=== PATIENT | female | born 1940 | race Caucasian/White ===

== ENCOUNTER 2017-03-16 07:29 | Day surgery (SDC) | payer MEDICARE ==
--- NOTE | 2017-03-08 11:47 | NUR ---
NN DURING PREOP PHONE CALL PT REPORTED HAVING CP WITHIN THE LAST WEEK, STATED IT RESOLVED WITH NITRO. PT ALSO STATED SHE HAD AN APPT WITH HER SHACKLER YESTERDAY BUT THAT SHE HAD FORGOTTEN TO GO TO THAT APPT. Savanna SEGURA WITH ANESTHESIA WAS NOTIFIED AND REQUESTED CARDIAC CLEARANCE BE OBTAINED BEFORE PROCEEDING WITH PROCEDURE. DUNCAN WITH DR. LEWIS'S OFFICE WAS NOTIFIED.
--- NOTE | 2017-03-15 17:15 | NUR ---
NN PT'S HAD BEEN CANCELLED LAST WEEK BECAUSE OF AN EPISODE OF CHEST PAIN, AT THAT TIME CARDIAC CLEARANCE WAS REQUESTED BY NINFA FROM ANESTHESIA DEPT. THE CHART TODAY OBTAINED A TYPED NOTE FROM DUNCAN AT DR. LEWIS'S OFFICE STATING THE PT WAS CLEARED FROM B2B APPOINTMENT SETTER FOR SURGERY. THERE WAS NOT AN ACTUAL NOTE FROM THE B2B APPOINTMENT SETTER STATING PT WAS CLEARED. VOICE MAIL WAS LEFT AT DR. HERNANDEZ OFFICE ON [facility] VOICE MAIL STATING WE WOULD NEED A LETTER FROM THE B2B APPOINTMENT SETTER STATING PT WAS CLEARED. [facility]-ANESTHESIA ELECTRICAL MAINTENANCE TECHNICIAN WAS NOTIFIED OF SITUATION WELL.
[~2017-03-16] VITALS: Ht 156.2 cm; Wt 72.4 kg
[~2017-03-16 07:29] MED LIST: ARFO15VI3 AEROSOL; BUDE0.2510 AEROSOL; FERR-67 PO; GUAI-782 PO; LEVO137T23 PO; LISI1TAB13 PO; MELO15TA12 PO; METF10002 PO; OMEP10CA4 PO; PRAV20TA4 PO
--- OUTSIDE RECORDS SUMMARY | 2017-03-16 07:35 | XMS REPORT ---
Author Author Carmella Laboy Organization [employer] Address Unknown Phone Unavailable Care Team Providers Care Textile Machine Operator Name Role Phone Carmella Laboy CP Unavailable Allergies No Known Allergies Problems Problem Type Condition Code Onset Dates Condition Status Problem Hypothyroidism, unspecified E03.9 Active Problem Essential (primary) hypertension I10 Active Problem Vitamin B12 deficiency anemia due to intrinsic factor deficiency D51.0 Active Problem Type 2 diabetes mellitus with hyperglycemia E11.65 Active Problem Chronic obstructive pulmonary disease, unspecified J44.9 Active Medications Medication Code System Code Instructions Start Date End Date Status Dosage Metformin HCl [facility] [id number] 1000MG Orally Twice a day 1 tablet with meals Results No Known Results Summary Purpose eClinicalWorks Submission
--- OUTSIDE RECORDS SUMMARY | 2017-03-16 07:35 | XMS REPORT | Continuity of Care Document ---
Author Author [facility] Organization [facility] Address Unknown Phone Unavailable Support Name Relationship Address Phone KAREN GALEANA MD Caregiver [address] [place] [address] [place] [address] Unavailable PATRICIA CARSON APRN Caregiver [address] [place] [address] Unavailable [employer] Next Of Kin Unknown [phone] Insurance Providers Guarantor Michelle Michel Address [address] [place] [address] CP Email DENIED PT PORTAL Payer Medicare Policy Number [id number] Subscriber's Name Michelle Michel Relationship 18 Self Advance Directives Directive Response Recorded Date/Time Advanced Directives Type None 05/13/14 1:22pm Ordered Resuscitation Status Full Code 04/21/16 12:17pm Resuscitation Documents on File No 04/22/16 6:21am DPOA for Healthcare Only No 04/22/16 6:21am Problems No problem information available. Medications Current Home Medications Medication Dose Units Route Directions Days Qty Instructions Start Date Arformoterol Tartrate (Brovana) 15 Mcg/2 Ml Vial.neb 1 Vial Aerosol Tx. Twice A Day 03/24/16 Budesonide 0.25 Mg/2 Ml Ampul.neb 1 Vial Aerosol Tx. Twice A Day 03/24/16 Cholecalciferol (Vitamin D3) (Vitamin D3) 5,000 Unit Tablet 1 Tab Oral Daily 03/24/16 Cinnamon Bark (Cinnamon) 500 Mg Capsule 1 Cap Oral Daily 03/24/16 Ferrous Sulfate (Iron Supplement) 325 Mg Tablet 1 Tab Oral Twice A Day 03/24/16 Garlic 1 Each Capsule 1 Cap Oral Daily 03/24/16 Guaifenesin/Dextromethorphan (Mucinex Dm Er 600-30 Mg Tablet) 1 Each Tab.er.12h 1 Tab Oral Twice A Day 03/24/16 Hydrocodone/Acetaminophen (Avenue 5-325 Tablet) 5-325 Tablet 1-2 Tab Oral Every 4-6 Hours as needed for Pain 30 Tablet 04/22/16 Levothyroxine Sodium (Synthroid) 100 Mcg Tablet 1 Tab Oral Before Breakfast BEST IF TAKEN BEFORE BREAKFAST 03/24/16 Lisinopril/Hydrochlorothiazide (Lisinopril-Hctz 20-25 Mg Tab) 1 Each Tablet 0.5 Tab Oral Daily 03/24/16 Meloxicam (Mobic) 15 Mg Tablet 1 Tab Oral Bedtime 03/24/16 Metformin Hcl 1,000 Mg Tablet 1 Tab Oral Twice Daily With Meals Take one tablet, by mouth, twice daily with meals 03/24/16 Multivitamin (Multi-Day Vitamins) 1 Each Tablet 1 Tab Oral Daily 03/24/16 Omeprazole 10 Mg Capsule 10 Mg Oral Daily 03/24/16 Potassium Gluconate 2.5 Meq Tablet 1 Tab Oral Give With Breakfast 03/24/16 Pravastatin Sodium 20 Mg Tablet 20 Mg Oral Bedtime Take 1 tablet, by mouth, daily at bedtime. 03/24/16 Pyridoxine Hcl (Vitamin B-6) 25 Mg Tablet 1 Tab Oral Three Times A Day 03/24/16 Vitamin B12 Injection Wkly 03/24/16 Social History Social History Problem Response Recorded Date/Time Onset Date Status Chewing Tobacco Status No 05/13/2014 1:22pm Not Applicable Not Applicable Hx Substance Use No 04/22/2016 6:33am Not Applicable Not Applicable Hx Alcohol Use Y MODERATE 2 DRINKS A DAY 04/22/2016 6:33am Not Applicable Not Applicable Has the pt used tobacco in the last 12 months Yes 04/22/2016 6:33am Not Applicable Not Applicable Query Response Start Date Stop Date Smoking Status Current every day smoker Hospital Discharge Instructions Instructions: Care Instructions: Reason for Hospitalization: VENTRAL NERNIA I was in the hospital because (patient own words): FIX MY HERNIA Discharge Diet: Resume your normal diet as tolerated. Discharge Activity: Resume your normal activity as tolerated EXCEPT no heavy pushing, pulling, straining, or lifting >15 pounds for 3 weeks. Wear your abdominal binder as much as possible for the first 3 weeks to help prevent hernia recurrence and decrease pain (may remove to shower). Follow Up Appointments: Follow up with Dr. Galeana in 10-14 days. - Patient to call [phone] to schedule appointment. Pending Lab / Results: No Pending Lab Patient Instructions: For management of your postoperative pain consider the following: - You may take your Mobic (meloxicam) to help with pain in addition to pain pills or Tylenol. - You may take regular strength Tylenol (325 mg) INSTEAD of any Avenue dose. (No more than 10 tablets including Avenue and regular strength Tylenol in a 24 hour period). - Do not drive, operate machinery, drink alcohol, or sign important papers for 24 hours or while taking pain medication. Wound/Incision Care: Your incision has been covered with sterile glue. - No dressing is required. - You may shower after 24 hours - No tub baths or swimming for 2 weeks. Notify Physician If: Contact Dr. Galeana if any of the following occur: - Your pain is not adequately controlled. - You have persistent nausea or vomiting for more than 24 hours. - You have a fever over 101.5 degrees. - You develop redness, swelling, increasing pain, excessive bleeding, or excessive/foul smelling drainage at your incision site. - You have difficulty breathing. During office hours, call [phone]. After hours, please call [facility] at [phone] and have the wire brush operator page Dr. Galeana or the covering surgeon. *In the event of an emergency, seek medical care at the nearest emergency room.* Condition at time of discharge: Good Plan of Care Discharge Date 04/22/16 4:15pm Instructions/Education Provided DI for Hernia Repair DI for Hiatal Hernia Prescriptions See Medication Section Functional Status Query Response Date Recorded Mobility Status Ambulatory w/assist April 22, 2016 10:30am Activity Limitations None April 22, 2016 10:30am Feeding Ability Independent April 22, 2016 10:30am Toileting Ability Assist April 22, 2016 10:30am Grooming Ability Independent April 22, 2016 10:30am Dressing Ability Assist April 22, 2016 10:30am Driving Ability Dependent April 22, 2016 10:30am Housework Ability Assist April 22, 2016 10:30am Meal Preparation Ability Assist April 22, 2016 10:30am Stair Climbing Ability Assist April 22, 2016 10:30am Ability to complete ADL's impeded by No change April 22, 2016 10:30am Cognitive/Perceptual Impairments Impaired vision April 22, 2016 10:30am Visual Assistive Devices Glasses April 22, 2016 10:30am Allergies, Adverse Reactions, Alerts Allergen Type Severity Reaction Status Last Updated NKDA Allergy Unknown Active 04/22/16 RED SNAPPER Allergy Unknown HIVES Active 05/15/14 SHRIMP Allergy Unknown FACIAL SWELLING Active 05/15/14 Immunizations Query Response on File Recorded Date/Time Hx Influenza Vaccination Y fall 201304/22/16 6:33am Hx Pneumococcal Vaccination Y AFTER AGE 65 04/22/16 6:33am Hx Influenza Vaccination Y fall 201304/22/16 6:33am Vital Signs Acute Vital Signs Vital Response Date/Time Temperature (Fahrenheit) 98.0 deg F (96.8 - 99.1) 04/22/2016 4:05pm Temperature (Calculated Celsius) 36.59454 degrees C (36.0 - 37.3) 04/22/2016 4:05pm Temperature Source Oral 04/22/2016 4:05pm Pulse Rate (adult) 84 bpm (60 - 100) 04/22/2016 4:05pm Respiratory Rate 24 breaths/min (10 - 20) 04/22/2016 4:05pm O2 Sat by Pulse Oximetry 95 % (90 - 100) 04/22/2016 4:05pm Oxygen Delivery Method Room Air 04/22/2016 4:05pm Oxygen Delivery Method Nasal Cannula 04/22/2016 11:29am Oxygen Flow Rate 3.00 L/min 04/22/2016 2:33pm Blood Pressure 157/74 mm Hg 04/22/2016 4:05pm Blood Pressure Source Automatic Cuff 04/22/2016 4:05pm Height (Feet) 5 feet 04/22/2016 6:11am Height (Inches) 1.00 inches 04/22/2016 6:11am Weight (Kilograms) 72.700 kg 04/22/2016 6:11am Body Mass Index (BMI) 30.3 04/22/2016 6:11am Results Laboratory Results Test Name Result Units Flags Reference Collection Date/Time Result Date/ Time Comments White Blood Count 8.6 T/MM3 4.5-11.0 04/22/2016 6:05am 04/22/2016 6: 14am Red Blood Count 4.28 M/MM3 4.00-5.20 04/22/2016 6:05am 04/22/2016 6: 14am Hemoglobin 10.8 GM/DL L 12-16 04/22/2016 6:0504/22/2016 6:14am Hematocrit 35.0 % L 36-46 04/22/2016 6:0504/22/2016 6:14am Mean Corpuscular Volume 81.8 UM3 80-100 04/22/2016 6:0504/22/2016 6: 14am Mean Corpuscular Hemoglobin 25.2 UUG L 26-34 04/22/2016 6:052015 6:14am Mean Corpuscular Hemoglobin Concent 30.9 GM/DL L 31-37 04/22/2016 6:0504/22/2016 6:14am RDW Standard Deviation 47.8 FL 36.9-50.2 04/22/2016 6:0504/22/2016 6 :14am Platelet Count 316 T/MM3 130-400 04/22/2016 6:0504/22/2016 6:14am Mean Platelet Volume 10.1 UM3 9.4-12.4 04/22/2016 6:0504/22/2016 6: 14am Neutrophils (%) (Auto) 60.6 % 33-66 04/22/2016 6:0504/22/2016 6: 14am Lymphocytes (%) (Auto) 29.4 % 23-45 04/22/2016 6:0504/22/2016 6: 14am Monocytes (%) (Auto) 6.3 % 0-9.0 04/22/2016 6:0504/22/2016 6:14am Eosinophils (%) (Auto) 2.7 % 0-4 04/22/2016 6:0504/22/2016 6:14am Basophils (%) (Auto) 0.8 % 0-2 04/22/2016 6:0504/22/2016 6:14am Immature Granulocyte % (Auto) 0.2 % 0.0-0.5 04/22/2016 6:052015 6:14am Absolute Neutrophils (auto) 5.2 T/MM3 1.8-7.7 04/22/2016 6:052015 6:14am Absolute Lymphocytes (auto) 2.5 T/MM3 1-4.8 04/22/2016 6:052015 6:14am Absolute Monocytes (auto) 0.5 T/MM3 0-0.8 04/22/2016 6:0504/22/2016 6:14am Absolute Eosinophils (auto) 0.2 T/MM3 0-0.5 04/22/2016 6:052015 6:14am Absolute Basophils (auto) 0.1 T/MM3 0-0.2 04/22/2016 6:0504/22/2016 6:14am Absolute Immature Granulocyte (auto 0.02 T/MM3 0.00-0.03 04/22/2016 6: 0504/22/2016 6:14am Icterus Index < 2 0-7 04/22/2016 6:0504/22/2016 6:26am Chemistry Specimen Hemolysis 18 0-25 04/22/2016 6:0504/22/2016 6: 26am 0-25: Specimen Exhibited No Hemolysis. Turbidity < 20 0-20 04/22/2016 6:0504/22/2016 6:26am Sodium Level 139 MEQ/L 134-144 04/22/2016 6:0504/22/2016 6:26am Potassium Level 4.3 MEQ/L 3.6-5 04/22/2016 6:0504/22/2016 6:26am Chloride Level 100 MEQ/L 98-107 04/22/2016 6:0504/22/2016 6:26am Carbon Dioxide Level 28 MEQ/L 22-30 04/22/2016 6:0504/22/2016 6: 26am Anion Gap 11 MEQ/L 5-15 04/22/2016 6:0504/22/2016 6:26am Blood Urea Nitrogen 16.0 MG/DL 7-04/22/2016 6:0504/22/2016 6: 26am Creatinine 0.7 MG/DL 0.7-1.2 04/22/2016 6:0504/22/2016 6:26am BUN/Creatinine Ratio 23 RATIO 6-04/22/2016 6:0504/22/2016 6:26am Glomerular Filtration Rate Calc 82 04/22/2016 6:0504/22/2016 6: 26am Glucose Level 115 MG/DL H 65-110 04/22/2016 6:0504/22/2016 6:26am Calculated Osmolality 270 MOSM/KG 261-280 04/22/2016 6:05am 04/22/2016 6:26am Calcium Level 9.8 MG/DL 8.4-10.2 04/22/2016 6:05am 04/22/2016 6:26am Procedures Procedure Status Date Provider(s) Repair of hernia of anterior abdominal wall Completed 04/22/16 KAREN GALEANA MD Encounters Encounter Location Arrival/Admit Date Discharge/Depart Date Attending Provider Departed [facility] Day Care [facility] 04/22/16 5:50am 04/22/16 4: 15pm KAREN GALEANA MD
--- OUTSIDE RECORDS SUMMARY | 2017-03-16 07:35 | XMS REPORT ---
Author Author Carmella Laboy Organization [employer] Address Unknown Phone Unavailable Care Team Providers Care Case Packer And Sealer Name Role Phone Carmella Laboy CP Unavailable [...] Instructions Start Date End Date Status Dosage Brovana [facility] [address]-53 15 MCG/2ML Inhalation Twice a day 2 ml Budesonide [facility] [address]-93 0.5 MG/2ML Inhalation Twice a day 1 ml Results No Known Results Summary Purpose eClinicalWorks Submission
--- OUTSIDE RECORDS SUMMARY | 2017-03-16 07:35 | XMS REPORT ---
Author Author Carmella Laboy Organization [employer] Address Unknown Phone Unavailable Care Team Providers Care Lath Hand Name Role Phone Carmella Laboy CP Unavailable [...] Date End Date Status Dosage Metformin HCl [facility] [address]-24 1000 MG Orally Twice a day May 27, 2016 1 tablet with meals Lisinopril-Hydrochlorothiazide [facility] [address]-76 20-25 MG Orally Once a day 1/2 tablet Results No Known Results Summary Purpose eClinicalWorks Submission
--- OUTSIDE RECORDS SUMMARY | 2017-03-16 07:35 | XMS REPORT ---
Author Author Carmella Laboy Organization [employer] Address Unknown Phone Unavailable Care Team Providers Care Rubber Stamp Dies Inspector Name Role Phone Carmella Laboy CP Unavailable [...] Date End Date Status Dosage Metformin HCl [facility] [address]-36 1000 MG Orally Twice a day 1 tablet with meals Results No Known Results Summary Purpose eClinicalWorks Submission
--- OUTSIDE RECORDS SUMMARY | 2017-03-16 07:35 | XMS REPORT ---
Author Author Carmella Laboy [facility] eClinicalWorks Address Unknown Phone Unavailable Care Team Providers Care Spinning Machine Operator Name Role Phone Carmella Laboy CP Unavailable Allergies No Known Allergies Problems Problem Type Condition Code Onset Dates Condition Status Problem Hypothyroidism, unspecified E03.9 Active Problem Essential (primary) hypertension I10 Active Problem Vitamin B12 deficiency anemia due to intrinsic factor deficiency D51.0 Active Assessment Vitamin B12 deficiency anemia, unspecified D51.9 Active Problem Type 2 diabetes mellitus with hyperglycemia E11.65 Active Problem Chronic obstructive pulmonary disease, unspecified J44.9 Active Medications Medication Code System Code Instructions Start Date End Date Status Dosage Lisinopril-Hydrochlorothiazide [facility] [address]-17 20-25 MG Orally Once a day 1/2 tablet Nitroglycerin [facility] [address]-93 0.4 MG Sublingual every 0 hrs 1 tablet under the tongue and allow to dissolve as needed Budesonide [facility] [address]-66 0.5 MG/2ML Inhalation Twice a day 1 ml Metoprolol Tartrate [facility] [address]-51 25 MG Orally Once a day 1 tablet Ventolin HFA [facility] [address]-81 108 (90 Base) MCG/ACT Inhalation every 4 hrs prn Aug 25, 2015 2 puffs as needed Omeprazole [facility] [address]-37 20 MG Orally Once a day 1 capsule Metformin HCl [facility] [address]-90 1000 MG Orally Twice a day 1 tablet with meals Brovana [facility] [address]-40 15 MCG/2ML Inhalation Twice a day 2 ml Synthroid [facility] [address]-00 137 MCG Orally Once a day 1 tablet on an empty stomach in the morning Procedures Procedure Coding System Code Date INJECTION (plus drug) CPT-4 40347 2015 VITAMIN B12- VIT B12 AND FOLATE CPT-4 56331 2015 VITAMIN B12- VIT B12 AND FOLATE CPT-4 85096 2015 Nurse Visit CPT-4 DUMMY 2015 Results No Known Results Summary Purpose eClinicalWorks Submission
--- OUTSIDE RECORDS SUMMARY | 2017-03-16 07:36 | XMS REPORT ---
Author Author Carmella Laboy [facility] eClinicalWorks Address Unknown Phone Unavailable Care Team Providers Care Client Experience Administrator Name Role Phone Carmella Laboy CP Unavailable Allergies, Adverse Reactions, Alerts Substance Reaction Event Type chocolate Info Not Available Non Drug Allergy fish Info Not Available Non Drug Allergy Problems Problem Type Condition Code Onset Dates Condition Status Problem Hypothyroidism, unspecified E03.9 Active Problem Essential (primary) hypertension I10 Active Problem Vitamin B12 deficiency anemia due to intrinsic factor deficiency D51.0 Active Assessment Chronic obstructive pulmonary disease, unspecified J44.9 Active Problem Type 2 diabetes mellitus with hyperglycemia E11.65 Active Problem Chronic obstructive pulmonary disease, unspecified J44.9 Active Medications Medication Code System Code Instructions Start Date End Date Status Dosage Potassium Gluconate [facility] [address]-32 2 MEQ Orally Once a day 1 tablet Brovana [facility] [address]-99 15 MCG/2ML Inhalation Twice a day 2 ml Metoprolol Tartrate [facility] [address]-50 25 MG Orally Once a day 1 tablet Metformin HCl [facility] [address]-93 1000 MG Orally Twice a day 1 tablet with meals Misc. Devices ND 0 1 as directed [employer]Spring System Oxygen Concentrator February 11, 2016 as directed Synthroid [facility] [address]-62 137 MCG Orally Once a day 1 tablet on an empty stomach in the morning Lisinopril-Hydrochlorothiazide [facility] [address]-37 20-25 MG Orally Once a day 1/2 tablet Budesonide [facility] [address]-32 0.5 MG/2ML Inhalation Twice a day 1 ml Nitroglycerin [facility] [address]-43 0.4 MG Sublingual every 0 hrs 1 tablet under the tongue and allow to dissolve as needed Omeprazole [facility] [address]-44 20 MG Orally Once a day 1 capsule Pravastatin Sodium [facility] [address]-83 20 MG Orally Once a day 1 tablet Ventolin HFA [facility] [address]-52 108 (90 Base) MCG/ACT Inhalation every 4 hrs prn Aug 25, 2015 2 puffs as needed Procedures Procedure Coding System Code Date OFFICE VISIT, EST-LOW COMPLEXITY (15 MIN.) CPT-4 03089 February 11, 2016 [facility] visit Established Patient CPT-4 G0467 February 11, 2016 Vital Signs Date/Time: February 11, 2016 BMI 29.92 Index Height 61.5 in Weight 161 lbs Respiratory Rate 20 /min Blood Pressure Diastolic 71 mm Hg Blood Pressure Systolic 120 mm Hg Cardiac Monitoring Heart Rate 98 /min Oximetry 89 % Results No Known Results Summary Purpose eClinicalWorks Submission
--- OUTSIDE RECORDS SUMMARY | 2017-03-16 07:36 | XMS REPORT ---
Author Author Carmella Laboy [facility] eClinicalWorks Address Unknown Phone Unavailable Care Team Providers Care Materials And Corrosion Engineer Name Role Phone Carmella Laboy CP Unavailable Allergies No Known Allergies Problems Problem Type Condition Code Onset Dates Condition Status Problem Hypothyroidism, unspecified E03.9 Active Problem Essential (primary) hypertension I10 Active Problem Vitamin B12 deficiency anemia due to intrinsic factor deficiency D51.0 Active Assessment Vitamin B12 deficiency anemia due to intrinsic factor deficiency D51.0 Active Problem Type 2 diabetes mellitus with hyperglycemia E11.65 Active Problem Chronic obstructive pulmonary disease, unspecified J44.9 Active Medications Medication Code System Code Instructions Start Date End Date Status Dosage Metformin HCl [facility] [address]-57 1000 MG Orally Twice a day May 27, 2016 1 tablet with meals Brovana [facility] [address]-98 15 MCG/2ML Inhalation Twice a day 2 ml Nitroglycerin [facility] [address]-00 0.4 MG Sublingual every 0 hrs 1 tablet under the tongue and allow to dissolve as needed Budesonide [facility] [address]-04 0.5 MG/2ML Inhalation Twice a day 1 ml Synthroid [facility] [address]-37 137 MCG Orally Once a day 1 tablet on an empty stomach in the morning Potassium Gluconate [facility] [address]-82 2 MEQ Orally Once a day 1 tablet Omeprazole [facility] [address]-91 20 MG Orally Once a day 1 capsule Pravastatin Sodium [facility] [address]-12 20 MG Orally Once a day 1 tablet Metoprolol Tartrate [facility] [address]-99 25 MG Orally Once a day 1 tablet Mobic [facility] [address]-09 15 MG Orally Once a day April 15, 2016 January 10, 2017 1 tablet Lisinopril-Hydrochlorothiazide [facility] [address]-26 20-25 MG Orally Once a day 1/2 tablet Misc. Devices ND 0 1 as directed [employer] Mini System Oxygen Concentrator February 11, 2016 as directed Ventolin HFA [facility] [address]-63 108 (90 Base) MCG/ACT Inhalation every 4 hrs prn Aug 25, 2015 2 puffs as needed Procedures Procedure Coding System Code Date INJECTION (plus drug) CPT-4 66270 Jun 07, 2016 DUMMY CODE FOR NURSE VISIT CPT-4 DUMMY Jun 07, 2016 INJ VIT B-12 CYNOCOBLMN TO 1000 MCG CPT-4 J3420 Jun 07, 2016 Results No Known Results Summary Purpose eClinicalWorks Submission
--- OUTSIDE RECORDS SUMMARY | 2017-03-16 07:36 | XMS REPORT ---
Author Author Carmella Laboy Organization [employer] Address Unknown Phone Unavailable Care Team Providers Care Metal Bonding Helper Name Role Phone Carmella Laboy CP Unavailable Allergies No Known Allergies Problems No Known Problems Medications No Known Medications Results No Known Results Summary Purpose eClinicalWorks Submission
--- OUTSIDE RECORDS SUMMARY | 2017-03-16 07:36 | XMS REPORT | Continuity of Care Document ---
Author Author [facility] LIVE Organization [facility]IVE Address Unknown Phone Unavailable Support Name Relationship Address Phone KAREN CODY MD Caregiver [facility] [address] , [address] [address] [phone] SHIV GARDINER Caregiver [address] [place] [address] [place] Next Of Kin Unknown [phone] Insurance Providers Payer Name Policy Number Subscriber Name Relationship Medicare [id number] Yasmin Michel 18 Self Advance Directives Directive Response Recorded Date/Time Advanced Directives Type None 05/13/14 1:22pm Ordered Resuscitation Status Full Code 05/15/14 3:46pm Problems No known problems or medical conditions. Medications Medication Dose Route Sig Days/Qty Instructions Order Date Discontinued Date Status Albuterol Sulfate 1 Vial INH NEEDED 11/29/10 Active Pravastatin Sodium 1 Tab PO DAILY 11/29/10 Active Aspirin 1 Tab PO DAILY 11/29/10 Active Guaifenesin 1 Tab PO NEEDED 11/29/10 Active Lisinopril/Hydrochlorothiazide 0.5 Tab PO DAILY 11/29/10 Active Levothyroxine Sodium 137 Mcg PO BEFORE BREAKFAST 1 Qty 05/13/14 Active Metformin Hcl 1,000 Mg PO TWICE A DAY 1 Qty BEST TAKEN WITH MEALS Active Meloxicam 7.5 Mg PO DAILY 05/13/14 Active Glucosamine/D3/Boswellia Michelle 1 Each PO DAILY 05/13/14 Active Fluticasone Propionate 12 Gm IH TWICE A DAY 05/16/14 Active Social History Social History Problem Response Recorded Date/Time Smoking Status Current every day smoker 05/13/2014 1:22pm Chewing Tobacco Status No 05/13/2014 1:22pm Hx Substance Use No 05/13/2014 1:22pm Hx Alcohol Use Y MODERATE 2 DRINKS A DAY 05/13/2014 1:22pm Has the pt used tobacco in the last 12 months Yes 05/15/2014 2:58pm Hospital Discharge Instructions No hospital discharge instructions. Plan of Care No plan of care. Functional Status No functional status results. Allergies, Adverse Reactions, Alerts Allergen Type Severity Reaction Status Last Updated No Known Drug Allergies Allergy Unknown Active 05/16/14 RED SNAPPER Allergy Unknown HIVES Active 05/15/14 SHRIMP Allergy Unknown FACIAL SWELLING Active 05/15/14 Immunizations Name Given Type Hx Influenza Vaccination Y FALL 2012 Historical Hx Pneumococcal Vaccination Y AFTER AGE 65 Historical Hx Influenza Vaccination Y FALL 2012 Historical Vital Signs Acute Vital Signs Vital Response Date/Time Temperature (Fahrenheit) 98.1 deg F (96.8 - 99.1) Temperature (Calculated Celsius) 36.65611 degrees C (36.0 - 37.3) Temperature Source Temporal Pulse Rate (adult) 79 bpm (60 - 100) Respiratory Rate 14 breaths/min (10 - 20) O2 Sat by Pulse Oximetry 95 % (90 - 100) Blood Pressure 132/71 mm Hg Blood Pressure Source Automatic Cuff Height 5 ft 1.5 in Weight 157 lb Body Mass Index 29.0 kg/m^2 Results Test Source Date Result Interp. Ref. Range Comments Glucometer May 16, 2014 7:30am 136 mg/dL H 65-110 Activated Partial Thromboplast Time October 15, 2011 3:40pm 32.6 SEC N 24-36 Alanine Aminotransferase (ALT/SGPT) October 15, 2011 3:40pm 95 U/L H 9- 52 Albumin October 15, 2011 3:40pm 3.5 G/DL N 3.5-5.0 Albumin/Globulin Ratio October 15, 2011 3:40pm 0.8 RATIO L 1.1-2.2 Alkaline Phosphatase October 15, 2011 3:40pm 159 U/L H 38-126 Anion Gap October 15, 2011 3:40pm 11 MEQ/L N 5-15 Arterial Blood Base Excess November 29, 2010 5:00pm -0.1 MMOL/L N -2.0- 2.0 Arterial Blood HCO3 November 29, 2010 5:00pm 25 MEQ/L N 22-26 Arterial Blood Oxygen Saturation November 29, 2010 5:00pm 93.0 % L 95.0- 98.0 Arterial Blood Partial Pressure CO2 November 29, 2010 5:00pm 44 MMHG N 34 -45 Arterial Blood Total CO2 November 29, 2010 5:00pm 26.8 MEQ/L N 23-27 Arterial Blood pH November 29, 2010 5:00pm 7.370 N 7.350-7.450 Aspartate Amino Transf (AST/SGOT) October 15, 2011 3:40pm 185 U/L H 14- 36 B-Type Natriuretic Peptide October 15, 2011 3:40pm 102 PG/ML H 15-100 BUN/Creatinine Ratio October 15, 2011 3:40pm 14 RATIO N 6-26 Band Neutrophils # December 03, 2010 6:20am 0.2 T/MM3 - Band Neutrophils % December 03, 2010 6:20am 2.0 % N 0-6 Basophils # (Auto) October 15, 2011 3:40pm 0.1 T/MM3 N 0-0.2 Basophils # (Manual) November 29, 2010 4:45pm 0.1 T/MM3 N 0-0.2 Basophils % (Manual) November 29, 2010 4:45pm 1.0 % N 0-2 Basophils (%) (Auto) October 15, 2011 3:40pm 0.5 % N 0-2 Blood Urea Nitrogen October 15, 2011 3:40pm 10.0 MG/DL N 7-17 Calcium Level October 15, 2011 3:40pm 8.9 MG/DL N 8.4-10.2 Calculated Osmolality October 15, 2011 3:40pm 265 MOSM/KG N 261-280 Carbon Dioxide Level October 15, 2011 3:40pm 28 MEQ/L N 22-30 Chloride Level October 15, 2011 3:40pm 98 MEQ/L N 98-107 Conjugated Bilirubin October 15, 2011 3:40pm 0.00 MG/DL N 0.00-0.30 Creatinine October 15, 2011 3:40pm 0.7 MG/DL N 0.7-1.2 Differential Total Cells Counted December 02, 2010 4:35am 100 % - Eosinophils # (Auto) October 15, 2011 3:40pm 0.1 T/MM3 N 0-0.5 Eosinophils (%) (Auto) October 15, 2011 3:40pm 0.8 % N 0-4 Globulin October 15, 2011 3:40pm 4.6 G/DL H 2.4-3.6 Glucose Level October 15, 2011 3:40pm 142 MG/DL H 65-110 Hematocrit October 15, 2011 3:40pm 33.1 % L 36-46 Hemoglobin October 15, 2011 3:40pm 10.7 GM/DL L 12-16 Lymphocytes # (Auto) October 15, 2011 3:40pm 2.0 T/MM3 N 1-4.8 Lymphocytes # (Manual) December 03, 2010 6:20am 1.1 T/MM3 N 1-4.8 Lymphocytes % (Manual) December 03, 2010 6:20am 11.0 % L 23-45 Lymphocytes (%) (Auto) October 15, 2011 3:40pm 17.9 % L 23-45 Mean Corpuscular Hemoglobin October 15, 2011 3:40pm 26.9 UUG N 26-34 Mean Corpuscular Hemoglobin Concent October 15, 2011 3:40pm 32.3 GM/DL N 31-37 Mean Corpuscular Volume October 15, 2011 3:40pm 83.2 UM3 N 80-100 Mean Platelet Volume October 15, 2011 3:40pm 10.0 UM3 N 9.4-12.4 Monocytes # (Auto) October 15, 2011 3:40pm 0.4 T/MM3 N 0-0.8 Monocytes # (Manual) December 03, 2010 6:20am 0.3 T/MM3 N 0-0.8 Monocytes % (Manual) December 03, 2010 6:20am 3.0 % N 0-9.0 Monocytes (%) (Auto) October 15, 2011 3:40pm 4.0 % N 0-9.0 Neutrophils # (Auto) October 15, 2011 3:40pm 8.5 T/MM3 H 1.8-7.7 Neutrophils # (Manual) December 03, 2010 6:20am 8.4 T/MM3 H 1.8-7.7 Neutrophils % (Manual) December 03, 2010 6:20am 84.0 % H 33-66 Neutrophils (%) (Auto) October 15, 2011 3:40pm 76.5 % H 33-66 Platelet Count October 15, 2011 3:40pm 397 T/MM3 N 130-400 Potassium Level October 15, 2011 3:40pm 4.2 MEQ/L N 3.6-5 Prothromb Time International Ratio October 15, 2011 3:40pm 1.14 H 0.86- 1.10 THERAPUTIC RANGE=2.00-3.00 FOR ANTI-THROMBOSIS THERAPUTIC RANGE=2.50- 3.50 FOR IMPLANTED VALVE RDW Standard Deviation October 15, 2011 3:40pm 49.4 FL N 36.9-50.2 Red Blood Count October 15, 2011 3:40pm 3.98 M/MM3 L 4.00-5.20 Rouleau November 30, 2010 4:15am Present - Sodium Level October 15, 2011 3:40pm 137 MEQ/L N 134-144 Total Bilirubin October 15, 2011 3:40pm 0.70 MG/DL N 0.20-1.30 Total Protein October 15, 2011 3:40pm 8.1 G/DL N 6.3-8.2 Troponin I October 15, 2011 3:40pm < 0.012 ng/ml 0-0.12 Unconjugated Bilirubin October 15, 2011 3:40pm 0.20 MG/DL N 0.00-1.10 Urine Bacteria November 29, 2010 7:00pm 1+ H - Has specimen been collected/obtained? Y Urine Bilirubin November 29, 2010 7:00pm Negative - Has specimen been collected/obtained? Y Urine Blood November 29, 2010 7:00pm 3+ H - Has specimen been collected/ obtained? Y Urine Collection Type November 29, 2010 7:00pm Voided - Has specimen been collected/obtained? Y Urine Color November 29, 2010 7:00pm Yellow - Has specimen been collected/obtained? Y Urine Glucose (UA) November 29, 2010 7:00pm Negative - Has specimen been collected/obtained? Y Urine Hyaline Casts November 29, 2010 7:00pm 3-5 /LPF - Has specimen been collected/obtained? Y Urine Ketones November 29, 2010 7:00pm 3+ H - Has specimen been collected/obtained? Y Urine Leukocyte Esterase November 29, 2010 7:00pm Negative - Has specimen been collected/obtained? Y Urine Nitrite November 29, 2010 7:00pm Negative - Has specimen been collected/obtained? Y Urine Protein November 29, 2010 7:00pm 2+ H - Has specimen been collected/obtained? Y Urine RBC November 29, 2010 7:00pm 1-3 /HPF - Has specimen been collected/obtained? Y Urine Specific [place] November 29, 2010 7:00pm 1.025 - Has specimen been collected/obtained? Y Urine Squamous Epithelial Cells November 29, 2010 7:00pm Moderate - Has specimen been collected/obtained? Y Urine Turbidity November 29, 2010 7:00pm Clear - Has specimen been collected/obtained? Y Urine Urobilinogen November 29, 2010 7:00pm 1 EU/DL - Has specimen been collected/obtained? Y Urine WBC November 29, 2010 7:00pm 1-3 /HPF - Has specimen been collected/obtained? Y Urine White Blood Cell Casts November 29, 2010 7:00pm Not Performed - Urine pH November 29, 2010 7:00pm 5.0 - Has specimen been collected/ obtained? Y White Blood Count October 15, 2011 3:40pm 11.1 T/MM3 H 4.5-11.0 Oxygen Delivery Method (LAB) November 29, 2010 5:00pm Nasal cannula,liters - Glomerular Filtration Rate Calc October 15, 2011 3:40pm 83 - Immature Granulocyte # (Auto) October 15, 2011 3:40pm 0.03 T/MM3 N 0.00 -0.03 Immature Granulocyte % (Auto) October 15, 2011 3:40pm 0.3 % N 0.0-0.5 Arterial Blood pO2 at Patient Temp November 29, 2010 5:00pm 69 MMHG L 80- 100 Clostridium difficile [id number] December 01, 2010 3:25am --- 12/01/10821 ---STLCDTBIN previously reported as: NEGATIVE - C. difficile Toxin B Gene (PCR) December 01, 2010 3:25am Negative - If Toxin A is clinically indicated, treat accordingly. Blood Culture Blood November 29, 2010 4:55pm NO GROWTH AFTER 5 DAYS Gram Stain Sputum-Expectorated Sputum November 29, 2010 7:00pm Procedures Procedure Status Date Provider(s) Colonoscopy completed 05/16/14 KAREN CODY MD Encounters Encounter Location Date/Time Registered [facility] 04/11/14 9:16am Registered [facility] 04/10/14 9:14am
--- OUTSIDE RECORDS SUMMARY | 2017-03-16 07:36 | XMS REPORT ---
Author Author Gela Cr [facility] eClinicalWorks Address Unknown Phone Unavailable Care Team Providers Care Sack Sewer Name Role Phone Gela Cr CP Unavailable Allergies No Known Allergies Problems [...] Start Date End Date Status Dosage Brovana [facility] [address]-45 15 MCG/2ML Inhalation Twice a day 2 ml Metformin HCl [facility] [address]-81 1000 MG Orally Twice a day May 27, 2016 1 tablet with meals Pravastatin Sodium [facility] [address]-98 20 MG Orally Once a day 1 tablet Metoprolol Tartrate [facility] [address]-98 25 MG Orally Once a day 1 tablet Potassium Gluconate [facility] [address]-45 2 MEQ Orally Once a day 1 tablet Budesonide [facility] [address]-53 0.5 MG/2ML Inhalation Twice a day 1 ml Omeprazole [facility] [address]-99 20 MG Orally Once a day 1 capsule Mobic [facility] [address]-51 15 MG Orally Once a day April 15, 2016 Jun 20, 2017 1 tablet Metformin HCl [facility] 11068313060 1000MG Orally Twice a day 1 tablet with meals Misc. Devices ND 0 1 as directed [employer] System Oxygen Concentrator February 11, 2016 as directed Nitroglycerin [facility] [address]-50 0.4 MG Sublingual every 0 hrs 1 tablet under the tongue and allow to dissolve as needed Synthroid [facility] [address]-39 137 MCG Orally Once a day 1 tablet on an empty stomach in the morning Lisinopril-Hydrochlorothiazide [facility] [address]-38 20-25 MG Orally Once a day 1/2 tablet Ventolin HFA [facility] [address]-22 108 (90 Base) MCG/ACT Inhalation every 4 hrs prn Aug 25, 2015 2 puffs as needed Procedures Procedure Coding System Code Date INJECTION (plus drug) CPT-4 76095 Sep 29, 2016 DUMMY CODE FOR NURSE VISIT CPT-4 DUMMY Sep 29, 2016 INJ VIT B-12 CYNOCOBLMN TO 1000 MCG CPT-4 J3420 Sep 29, 2016 Results No Known Results Summary Purpose eClinicalWorks Submission
--- OUTSIDE RECORDS SUMMARY | 2017-03-16 07:36 | XMS REPORT ---
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 Active Assessment Vitamin B deficiency, unspecified E53.9 Active Problem Type 2 diabetes mellitus with hyperglycemia E11.65 Active Problem Chronic obstructive pulmonary disease, unspecified J44.9 Active Medications Medication Code System Code Instructions Start Date End Date Status Dosage Metformin HCl [facility] [address]-23 1000 MG Orally Twice a day 1 tablet with meals Omeprazole [facility] [address]-86 20 MG Orally Once a day 1 capsule Budesonide [facility] [address]-47 0.5 MG/2ML Inhalation Twice a day 1 ml Nitroglycerin [facility] [address]-38 0.4 MG Sublingual every 0 hrs 1 tablet under the tongue and allow to dissolve as needed Lisinopril-Hydrochlorothiazide [facility] [address]-03 20-25 MG Orally Once a day 1/2 tablet Ventolin HFA [facility] [address]-98 108 (90 Base) MCG/ACT Inhalation every 4 hrs prn Aug 25, 2015 2 puffs as needed Synthroid [facility] [address]-69 137 MCG Orally Once a day 1 tablet on an empty stomach in the morning Misc. Devices ND 0 1 as directed [employer] System Oxygen Concentrator February 11, 2016 as directed Brovana [facility] [address]-63 15 MCG/2ML Inhalation Twice a day 2 ml Metoprolol Tartrate [facility] [address]-83 25 MG Orally Once a day 1 tablet Pravastatin Sodium [facility] [address]-76 20 MG Orally Once a day 1 tablet Potassium Gluconate [facility] [address]-75 2 MEQ Orally Once a day 1 tablet Mobic [facility] [address]-43 15 MG Orally Once a day April 15, 2016 January 10, 2017 1 tablet Procedures Procedure Coding System Code Date INJECTION (plus drug) CPT-4 58663 May 10, 2016 DUMMY CODE FOR NURSE VISIT CPT-4 DUMMY May 10, 2016 INJ VIT B-12 CYNOCOBLMN TO 1000 MCG CPT-4 J3420 May 10, 2016 Results No Known Results Summary Purpose eClinicalWorks Submission
--- OUTSIDE RECORDS SUMMARY | 2017-03-16 07:36 | XMS REPORT ---
Author Author Carmella Laboy Organization eClinicalWorks Address Unknown Phone Unavailable Care Team Providers Care Centrifugal Screen Tender Name Role Phone Carmella Laboy CP Unavailable Allergies No Known Allergies Problems Problem Type Condition ICD-9 Code Onset Dates Condition Status Assessment Lump or mass in breast 611.72 Active Medications No Known Medications Procedures Procedure Coding System Code Date INJECTION (plus drug) CPT-4 62242 Jul 03, 2015 Nurse Visit CPT-4 DUMMY Jul 03, 2015 VITAMIN B12- VIT B12 AND FOLATE CPT-4 74790 Jul 03, 2015 Results No Known Results Summary Purpose eClinicalWorks Submission
--- OUTSIDE RECORDS SUMMARY | 2017-03-16 07:36 | XMS REPORT ---
Author Author Carmella Laboy Organization eClinicalWorks Address Unknown Phone Unavailable Care Team Providers Care [employer] Membership Sales Agent Name Role Phone Carmella Laboy CP Unavailable [...] Instructions Start Date End Date Status Dosage Budesonide [facility] [address]-59 0.5 MG/2ML Inhalation Twice a day 1 ml Mobic [facility] [address]-32 15 MG Orally Once a day April 15, 2016 Jun 20, 2017 1 tablet Results No Known Results Summary Purpose eClinicalWorks Submission
--- OUTSIDE RECORDS SUMMARY | 2017-03-16 07:36 | XMS REPORT ---
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 Active Assessment Encounter for immunization Z23 Active Problem Type 2 diabetes mellitus with hyperglycemia E11.65 Active Problem Chronic obstructive pulmonary disease, unspecified J44.9 Active Medications Medication Code System Code Instructions Start Date End Date Status Dosage Nitroglycerin [facility] [address]-43 0.4 MG Sublingual every 0 hrs 1 tablet under the tongue and allow to dissolve as needed Ventolin HFA [facility] [address]-98 108 (90 Base) MCG/ACT Inhalation every 4 hrs prn Aug 25, 2015 2 puffs as needed Brovana [facility] [address]-66 15 MCG/2ML Inhalation Twice a day 2 ml Budesonide [facility] [address]-88 0.5 MG/2ML Inhalation Twice a day 1 ml Misc. Devices ND 0 1 as directed [employer] [facility] Oxygen Concentrator February 11, 2016 as directed Metformin HCl [facility] [address]-21 1000 MG Orally Twice a day May 27, 2016 1 tablet with meals Synthroid [facility] [address]-36 137 MCG Orally Once a day 1 tablet on an empty stomach in the morning Omeprazole [facility] [address]-87 20 MG Orally Once a day 1 capsule Pravastatin Sodium [facility] [address]-95 20 MG Orally Once a day 1 tablet Potassium Gluconate [facility] [address]-59 2 MEQ Orally Once a day 1 tablet Lisinopril-Hydrochlorothiazide [facility] [address]-76 20-25 MG Orally Once a day 1/2 tablet Metoprolol Tartrate [facility] [address]-77 25 MG Orally Once a day 1 tablet Mobic [facility] [address]-98 15 MG Orally Once a day April 15, 2016 Jun 20, 2017 1 tablet Procedures Procedure Coding System Code Date INJECTION (plus drug) CPT-4 88800 Aug 31, 2016 Fluzone HIGH DOSE (age 65 and older) CPT-4 45652 Aug 31, 2016 INJ VIT B-12 CYNOCOBLMN TO 1000 MCG CPT-4 J3420 Aug 31, 2016 FLU VACC PRSV FREE INC ANTIG CPT-4 83840 Aug 31, 2016 ADMN FLU VAC NO FEE SCHED SAME DAY CPT-4 G0008 Aug 31, 2016 DUMMY CODE FOR NURSE VISIT CPT-4 DUMMY Aug 31, 2016 ADMINISTRATION, 1ST IMMUNIZATION CPT-4 09741 Aug 31, 2016 Results No Known Results Immunizations Vaccine Administration Date Fluzone HIGH DOSE (age 65 and older) Aug 31, 2016 Summary Purpose eClinicalWorks Submission
--- OUTSIDE RECORDS SUMMARY | 2017-03-16 07:36 | XMS REPORT ---
Author Author Carmella Laboy Organization eClinicalWorks Address Unknown Phone Unavailable Care Team Providers Care Satellite Specialist Name Role Phone Carmella Laboy CP Unavailable Allergies, Adverse Reactions, Alerts Substance Reaction Event Type N.K.D.A. Info Not Available Non Drug Allergy Problems [...] Instructions Start Date End Date Status Dosage Ventolin HFA [facility] [address]-49 108 (90 Base) MCG/ACT Inhalation every 4 hrs prn Aug 25, 2015 2 puffs as needed Procedures Procedure Coding System Code Date INJECTION (plus drug) CPT-4 61083 Sep 03, 2015 VITAMIN B12- VIT B12 AND FOLATE CPT-4 52270 Sep 03, 2015 Vital Signs Date/Time: Sep 03, 2015 Height 61.5 in Weight 165.0 lbs Temperature 97.5 F Blood Pressure Diastolic 80 mm Hg Blood Pressure Systolic 130 mm Hg Cardiac Monitoring Heart Rate 90 /min BMI 30.67 Index Oximetry 93 % Results No Known Results Summary Purpose eClinicalWorks Submission
--- OUTSIDE RECORDS SUMMARY | 2017-03-16 07:36 | XMS REPORT ---
Author Author Carmella Laboy [facility] eClinicalWorks Address Unknown Phone Unavailable Care Team Providers Care Video Clerk Name Role Phone Carmella Laboy CP Unavailable [...] Instructions Start Date End Date Status Dosage Omeprazole [facility] [address]-96 20 MG Orally Once a day 1 capsule Potassium Gluconate [facility] [address]-64 2 MEQ Orally Once a day 1 tablet Metoprolol Tartrate [facility] [address]-26 25 MG Orally Once a day 1 tablet Brovana [facility] [address]-40 15 MCG/2ML Inhalation Twice a day 2 ml Budesonide [facility] [address]-88 0.5 MG/2ML Inhalation Twice a day 1 ml Pravastatin Sodium [facility] [address]-22 20 MG Orally Once a day 1 tablet Ventolin HFA [facility] [address]-98 108 (90 Base) MCG/ACT Inhalation every 4 hrs prn Aug 25, 2015 2 puffs as needed Mobic [facility] [address]-11 15 MG Orally Once a day April 15, 2016 Jun 20, 2017 1 tablet Lisinopril-Hydrochlorothiazide [facility] [address]-54 20-25 MG Orally Once a day 1/2 tablet Metformin HCl [facility] [address]-04 1000 MG Orally Twice a day May 27, 2016 1 tablet with meals Synthroid [facility] [address]-42 137 MCG Orally Once a day 1 tablet on an empty stomach in the morning Misc. Devices ND 0 1 as directed [employer] System Oxygen Concentrator February 11, 2016 as directed Nitroglycerin [facility] [address]-97 0.4 MG Sublingual every 0 hrs 1 tablet under the tongue and allow to dissolve as needed Procedures Procedure Coding System Code Date INJECTION (plus drug) CPT-4 42494 Jul 06, 2016 DUMMY CODE FOR NURSE VISIT CPT-4 DUMMY Jul 06, 2016 INJ VIT B-12 CYNOCOBLMN TO 1000 MCG CPT-4 J3420 Jul 06, 2016 Results No Known Results Summary Purpose eClinicalWorks Submission
--- OUTSIDE RECORDS SUMMARY | 2017-03-16 07:36 | XMS REPORT ---
Author Author Carmella Laboy [facility] eClinicalWorks Address Unknown Phone Unavailable Care Team Providers Care Airways Control Specialist Name Role Phone Carmella Laboy CP [...] Instructions Start Date End Date Status Dosage Metoprolol Tartrate [facility] [address]-70 25 MG Orally Once a day 1 tablet Budesonide [facility] [address]-72 0.5 MG/2ML Inhalation Twice a day 1 ml Potassium Gluconate [facility] [address]-47 2 MEQ Orally Once a day 1 tablet Pravastatin Sodium [facility] [address]-15 20 MG Orally Once a day 1 tablet Ventolin HFA [facility] [address]-23 108 (90 Base) MCG/ACT Inhalation every 4 hrs prn Aug 25, 2015 2 puffs as needed Brovana [facility] [address]-76 15 MCG/2ML Inhalation Twice a day 2 ml Nitroglycerin [facility] [address]-60 0.4 MG Sublingual every 0 hrs 1 tablet under the tongue and allow to dissolve as needed Metformin HCl [facility] [address]-40 1000 MG Orally Twice a day 1 tablet with meals Misc. Devices ND 0 1 as directed [employer] System Oxygen Concentrator February 11, 2016 as directed Synthroid [facility] [address]-70 137 MCG Orally Once a day 1 tablet on an empty stomach in the morning Lisinopril-Hydrochlorothiazide [facility] [address]-33 20-25 MG Orally Once a day 1/2 tablet Omeprazole [facility] [address]-82 20 MG Orally Once a day 1 capsule Procedures Procedure Coding System Code Date INJECTION (plus drug) CPT-4 47571 February 19, 2016 Nurse Visit CPT-4 DUMMY February 19, 2016 INJ VIT B-12 CYNOCOBLMN TO 1000 MCG CPT-4 J3420 February 19, 2016 Results No Known Results Summary Purpose eClinicalWorks Submission
--- OUTSIDE RECORDS SUMMARY | 2017-03-16 07:36 | XMS REPORT ---
Author Author Carmella Laboy Organization [employer] Address Unknown Phone Unavailable Care Team Providers Care Rags Laborer Name Role Phone Carmella Laboy CP Unavailable Allergies No Known Allergies Problems No Known Problems Medications No Known Medications Results No Known Results Summary Purpose [employer]Works Submission
--- OUTSIDE RECORDS SUMMARY | 2017-03-16 07:36 | XMS REPORT ---
Author Author Carmella Laboy Organization [employer] Address Unknown Phone Unavailable Care Team Providers Care Battery Filler Name Role Phone Carmella Laboy CP Unavailable Allergies No Known Allergies Problems No Known Problems Medications Medication Code System Code Instructions Start Date End Date Status Dosage Ventolin HFA [facility] [place] [address]-24 108 (90 Base) MCG/ACT Inhalation every 4 hrs prn Aug 25, 2015 2 puffs as needed Results No Known Results Summary Purpose [employer]ClinicalWorks Submission
--- OUTSIDE RECORDS SUMMARY | 2017-03-16 07:36 | XMS REPORT ---
Author Author Carmella Laboy [facility] e[employer] Address Unknown Phone Unavailable Care Team Providers Care Senior Materials Planner Name Role Phone Carmella Laboy CP Unavailable [...] Start Date End Date Status Dosage Omeprazole [facility] [address]-86 20 MG Orally Once a day 1 capsule Ventolin HFA [facility] [address]-88 108 (90 Base) MCG/ACT Inhalation every 4 hrs prn Aug 25, 2015 2 puffs as needed Mobic [facility] [address]-26 15 MG Orally Once a day April 15, 2016 Jun 20, 2017 1 tablet Potassium Gluconate [facility] [address]-30 2 MEQ Orally Once a day 1 tablet Budesonide [facility] [address]-02 0.5 MG/2ML Inhalation Twice a day 1 ml Misc. Devices ND 0 1 as directed SimplyDxContinuum Mini System Oxygen Concentrator February 11, 2016 as directed Brovana [facility] [address]-13 15 MCG/2ML Inhalation Twice a day 2 ml Lisinopril-Hydrochlorothiazide [facility] [address]-08 20-25 MG Orally Once a day 1/2 tablet Pravastatin Sodium [facility] [address]-33 20 MG Orally Once a day 1 tablet Synthroid [facility] [address]-64 137 MCG Orally Once a day 1 tablet on an empty stomach in the morning Metformin HCl [facility] [address]-47 1000 MG Orally Twice a day May 27, 2016 1 tablet with meals Nitroglycerin [facility] [address]-36 0.4 MG Sublingual every 0 hrs 1 tablet under the tongue and allow to dissolve as needed Metoprolol Tartrate [facility] [address]-70 25 MG Orally Once a day 1 tablet Procedures Procedure Coding System Code Date INJECTION (plus drug) CPT-4 67717 Aug 03, 2016 DUMMY CODE FOR NURSE VISIT CPT-4 DUMMY Aug 03, 2016 INJ VIT B-12 CYNOCOBLMN TO 1000 MCG CPT-4 J3420 Aug 03, 2016 Results No Known Results Summary Purpose eClinicalWorks Submission
--- OUTSIDE RECORDS SUMMARY | 2017-03-16 07:36 | XMS REPORT ---
Author Author Carmella Laboy Organization [employer] Address Unknown Phone Unavailable Care Team Providers Care Carpet Technician Name Role Phone Carmella Laboy CP Unavailable [...] Start Date End Date Status Dosage Lisinopril-Hydrochlorothiazide [facility] [address]-24 20-25 MG Orally Once a day 1/2 tablet Nitroglycerin [facility] [address]-82 0.4 MG Sublingual every 0 hrs 1 tablet under the tongue and allow to dissolve as needed Budesonide [facility] [address]-78 0.5 MG/2ML Inhalation Twice a day 1 ml Metoprolol Tartrate [facility] [place] [address]-54 25 MG Orally Once a day 1 tablet Ventolin HFA [facility] [address]-54 108 (90 Base) MCG/ACT Inhalation every 4 hrs prn Aug 25, 2015 2 puffs as needed Omeprazole [facility] [address]-22 20 MG Orally Once a day 1 capsule Metformin HCl [facility] [address]-98 1000 MG Orally Twice a day 1 tablet with meals Brovana [facility] [place] [address]-35 15 MCG/2ML Inhalation Twice a day 2 ml Synthroid [facility] [address]-13 137 MCG Orally Once a day 1 tablet on an empty stomach in the morning Results No Known Results Summary Purpose eClinicalWorks Submission
--- OUTSIDE RECORDS SUMMARY | 2017-03-16 07:36 | XMS REPORT ---
Author Author Carmella Laboy Organization [employer] Address Unknown Phone Unavailable Care Team Providers Care On Air Announcer Name Role Phone Carmella Laboy CP Unavailable [...] Date End Date Status Dosage Metformin HCl [facility] [id number] 1000MG Orally Twice a day 1 tablet with meals Results No Known Results Summary Purpose eClinicalWorks Submission
--- OUTSIDE RECORDS SUMMARY | 2017-03-16 07:36 | XMS REPORT ---
Author Author Carmella Laboy Organization [employer] Address Unknown Phone Unavailable Care Team Providers Care Procurement Agent Name Role Phone Blakeharry Carmella CP Unavailable Allergies No Known Allergies Problems [...] Instructions Start Date End Date Status Dosage Synthroid [facility] [address]-35 137 MCG Orally Once a day 1 tablet on an empty stomach in the morning Brovana [facility] [address]-31 15 MCG/2ML Inhalation Twice a day 2 ml Budesonide [facility] [address]-37 0.5 MG/2ML Inhalation Twice a day 1 ml Ventolin HFA [facility] [address]-85 108 (90 Base) MCG/ACT Inhalation every 4 hrs prn Aug 25, 2015 2 puffs as needed Metoprolol Tartrate [facility] [address]-21 25 MG Orally Once a day 1 tablet Omeprazole [facility] [address]-54 20 MG Orally Once a day 1 capsule Metformin HCl [facility] [address]-83 1000 MG Orally Twice a day 1 tablet with meals Nitroglycerin [facility] [address]-11 0.4 MG Sublingual every 0 hrs 1 tablet under the tongue and allow to dissolve as needed Lisinopril-Hydrochlorothiazide [facility] [address]-77 20-25 MG Orally Once a day 1/2 tablet Procedures Procedure Coding System Code Date INJECTION (plus drug) CPT-4 57052 Oct 07, 2015 Nurse Visit CPT-4 DUMMY Oct 07, 2015 VITAMIN B12- VIT B12 AND FOLATE CPT-4 31623 Oct 07, 2015 Results No Known Results Summary Purpose eClinicalWorks Submission
[2017-03-16 07:55] VITALS: Ht 156.2 cm; Wt 72.4 kg
--- NOTE | 2017-03-16 07:56 | ANESPREOP ---
Anesthesia Record Date and Time DATE: 03/16/17 TIME: 07:51 Pre-Op Diagnosis lt. cat. Proposed Surgical Procedure CAT. EXTRACTION WITH IOL IMPLANT LEFT EYE Allergies: Coded Allergies: NKDA (Verified Allergy, Unknown, 03/08/17) Uncoded Allergies: RED SNAPPER (Allergy, Unknown, HIVES, 05/15/14) SHRIMP (Allergy, Unknown, FACIAL SWELLING, 05/15/14) Ht/Wt/BMI Height: 5 ' 1.00 " Weight: kg BMI: kg/m2 Medications Inpatient Medications Current Medications Medications (Trade) Dose Ordered Sig/Sarina Start Time Stop Time Status Last Admin Dose Admin Gatifloxacin (Zymaxid) 1 drop Q5M 03/16/17 17:00 03/16/17 17:11 Cyclopentolate HCl (Cyclate 1%) 1 drop Q5M 03/16/17 17:00 03/16/17 17:11 Tropicamide (Mydriacyl 1% Eye Drops) 1 drop Q5M 03/16/17 17:00 03/16/17 17:11 Phenylephrine HCl (Jori-Synephrine 2.5% Eye Drops) 1 drop Q5M 03/16/17 17:00 03/16/17 17:11 Arformoterol Tartrate (Brovana) 15 Mcg/2 Ml Vial.neb, 1 VIAL AEROSOL BID, ( Reported) Budesonide (Budesonide) 0.25 Mg/2 Ml Ampul.neb, 1 VIAL AEROSOL BID, (Reported) Ferrous Sulfate (Iron Supplement) 325 Mg Tablet, 1 TAB PO BID, (Reported) Guaifenesin/Dextromethorphan (Mucinex Dm ER 600-30 mg Tablet) 1 Each Tab.er.12h , 1 TAB PO BID, (Reported) Levothyroxine Sodium (Synthroid) 137 Mcg Tablet, 1 TAB PO ACB, (Reported) BEST TAKEN BEFORE BREAKFAST Lisinopril/Hydrochlorothiazide (Lisinopril-Hctz 20-25 mg Tab) 1 Each Tablet, 0.5 TAB PO DAILY, (Reported) Meloxicam (Mobic) 15 Mg Tablet, 1 TAB PO HS, (Reported) Metformin HCl (Metformin HCl) 1,000 Mg Tablet, 1 TAB PO BIDWM, (Reported) Take one tablet, by mouth, twice daily with meals Omeprazole (Omeprazole) 10 Mg Capsule, 10 MG PO DAILY, (Reported) Pravastatin Sodium (Pravastatin Sodium) 20 Mg Tablet, 20 MG PO HS, (Reported) Take 1 tablet, by mouth, daily at bedtime. Currently on Beta Melissa: Yes Medical/Surgical History Anesthesia PMH: Reports: *Angina (2 WEEKS AGO), *Diabetes, *Dyspnea, * Hypertension, Arthritis (HX), COPD (4L NC 24/7), Hiatal Hernia, Hyperlipidemia, Obesity, Thyroid Disease, Denies: *HI, Anesthesia Reactions (NO AIRWAY/ INTUBATION ISSUES KNOWN), Asthma, CHF, CVA/Stroke/TIA, Cancer, Clotting Problems , Deep Vein Thrombosis, Glaucoma, Hepatitis, Malignant Hyperthermia, Pneumonia, Reflux, Renal Disease, Seizures, Sleep Apnea, Tuberculosis Smoking Status: Current every day smoker Has pt. smoked today?: No # of Packs per Day: 1/2 # of Years: 50 Use Chewing Tobacco?: No Second Hand Exposure: No Substance Use Type: does not use Substance last used: unknown Alcohol Intake: daily Last Drink: unknown Past Surgical History Orthopedic Surgeries: No Abdominal Surgeries: No Genitourinary Surgeries: No Cardiac Surgeries: Yes Endocrine Surgeries: No Reproductive Surgeries: Yes - B BREAST FIBROIDS REMOVED Neurological Surgeries: No Ear Surgeries: No Nose Surgeries: No Throat Surgeries: Yes - TONSILLECTOMY Other Surgeries: Yes - COLONOSCOPY Anesthesia Adverse Reactions: FOUND none Family Hx of Anesthesia Advers: none Hx of Motion Sickness: No Pertinent Findings EKG Rhythm: Sinus Rhythm Physical Exam Respiratory: Bilat breath sounds equal, Lungs clear Cardiovascular: FOUND Regular rate, rhythm, FOUND No murmur Airway Assessment Mallampati Score: II TMD: 3 Fingerbreadths Neck Extension: Fair Overall Assessment: No Airway Concerns ASA: 3 Plan Anesthesia Plan: MAC Discussion Discussed risks/options/alternatives of anesthesia and questions answered. Patient consents. Nursing pain assessment noted. Attestation Statement Prior to the delivery of any anesthetic medication, I examined the patient, developed the plan, obtained the patient's consent and discussed the risk and benefits of the procedure with the patient/guardian. DRE POE CRNA March 16, 2017 07:54
[2017-03-16 07:59] VITALS: BP 146/66; PULSE 91; RESP 22; TEMP 97.8; O2SAT 97
[2017-03-16 08:05] VITALS: RESP 22
[2017-03-16] MEDS: GATIFLOXACIN 0.5% EYE DROPS 2.5ml LEFT EYE SCH ×3 (08:15→08:24)
[2017-03-16] MEDS: CYCLOPENTOLATE 1% EYE DROPS 2 ML BOTTLE LEFT EYE SCH ×3 (08:15→08:24)
[2017-03-16] MEDS: TROPICAMIDE 1% EYE DROPS 3ml LEFT EYE SCH ×3 (08:15→08:24)
[2017-03-16] MEDS: PHENYLEPHRINE 2.5% EYE DROPS 5ml LEFT EYE SCH ×3 (08:16→08:25)
[2017-03-16] MEDS ORDERED: FENTANYL 100mcg/2ml INJECTION ONE (09:19)
[2017-03-16] MEDS ORDERED: MIDAZOLAM 2mg/2ml INJECTION ONE (09:19)
[2017-03-16 10:10] VITALS: BP 153/70; PULSE 93; RESP 13; TEMP 97; O2SAT 96
--- NOTE | 2017-03-16 10:17 | ANESPO ---
Post-Op Note Date 03/16/17 Time: 10:16 Status Pt Participated in Evaluation: Pt participated in person Vital Signs Date Time Temp Pulse Resp B/P Pulse Ox O2 Delivery O2 Flow Rate FiO2 03/16/17 08:05 22 03/16/17 07:59 97.8 91 146/66 97 Nasal Cannula 4.00 Respiratory Function: Airway patent, Regular respirations Cardiovascular Function: Regular pulse Mental Status: Alert/oriented Pain Level Intensity: 0 Hydration: Taking po fluids Complications during Recovery None apparent Post-Anesthesia Notes pt. boris. well Follow-Up Instructions Instructions Per Surgeon Additional Information none DRE POE CRNA March 16, 2017 10:17
[2017-03-16 10:25] VITALS: BP 155/72; PULSE 97; RESP 20; O2SAT 98
[2017-03-16] MEDS ORDERED: acetaZOLAMIDE SR 500 MG CAPSULE PO ONE (10:30)
[2017-03-16 10:40] VITALS: BP 157/70; PULSE 85; RESP 20; O2SAT 99
[2017-03-16] MEDS ORDERED: LIDOCAINE 1% (10mg/ml) 30ml SDV IJ ONE (15:35)
[2017-03-16] MEDS ORDERED: NS FOR INJ. 20 ML VIAL INJ ONE (15:35)
[2017-03-16] MEDS ORDERED: LIDOCAINE 4% (40mg/ml) INJ. PF 5ml AMP MM ONE (15:35)
[2017-03-16] MEDS ORDERED: EPINEPHRINE 1mg/ml Pres.Free vl IO ONE (15:35)
[2017-03-16] MEDS ORDERED: PrednisoLONE 1% EYE DROPS 5ml LEFT EYE ONE (15:35)
[2017-03-16] MEDS ORDERED: BALANCED SALT SOLUTION 15ml IRRIGATION IO ONE (15:35)
[2017-03-16] MEDS ORDERED: BRIMONIDINE 0.2% EYE DROPS 5ml BOTH EYES ONE (15:35)
[2017-03-16] MEDS ORDERED: TETRACAINE 0.5% EYE DROPS 4ml BOTTLE OP ONE (15:35)
[2017-03-16] MEDS ORDERED: LIDOCAINE 3.5% EYE GEL PF 1ml OP ONE (17:00)
[2017-03-16] MEDS ORDERED: LIDOCAINE 1% (10mg/ml) 2ml SDV INJ ONE (17:00)
--- NOTE | 2017-03-17 08:31 | OPNOTEF ---
DATE OF OPERATION 03/16/2017 PREOPERATIVE DIAGNOSIS Visually significant cataract, left eye. POSTOPERATIVE DIAGNOSIS Visually significant cataract, left eye. PROCEDURE Cataract extraction by phacoemulsification with insertion of posterior chamber intraocular lens, left eye. SURGEON Dr. Ashkan Gongora DESCRIPTION OF PROCEDURE The patient was given topical ophthalmic dilating drops, 2.5% phenylephrine, 1% tropicamide, 1% cyclopentolate and topical antibiotic drop gatifloxacin and topical 2% Xylocaine gel q. 5 minutes x 3 prior to arrival to the OR into the left eye. In the OR the area about the left eye was prepped and draped in the usual sterile fashion with topical Betadine and 5% Betadine eye drops into the left eye. The procedure began and was done entirely under the operating microscope. A sterile lid speculum was placed into the left eye and removed at the end of the procedure. Using a 1.2 mm blade, two paracentesis side ports were made approximately 180 degrees apart. 1% preservative-free lidocaine was instilled into the eye followed by Viscoat. Using a 2.4-mm keratome, a temporal clear corneal incision was made. Using a cystotome and capsulorhexis forceps, an anterior capsulotomy was made. The lens nucleus was then loosened from surrounding cortical material by hydrodissection. Phacoemulsification handpiece was then introduced into the eye and the lens nucleus was successfully phacoemulsified using 26.63 CDE units of phacoemulsification power. During this phase of the procedure, lidocaine with epinephrine was instilled into the eye because the pupil began to constrict. This helped to dilate the pupil a bit more. Hydrodissection was done again to loosen cortical material from the capsule and the irrigation-aspiration handpieces were used to strip away all cortical material. The eye was then filled with Provisc and an HOYA lens Model #250 with a power of 20.0 diopters was inserted in the capsular bag of the left eye and centered. Viscoelastics were removed with the irrigation-aspiration handpieces. Then Miochol was instilled into the eye and the pupil came down to approximately 4 mm. 1 mg of vancomycin dissolved in 0.1 cc of normal saline was instilled into the eye. The incisions were hydrated to seal them and were tested and noted to be watertight. Drops of gatifloxacin, Pred Forte and brimonidine were dropped onto the left eye and a shield taped over the eye, completing the procedure. Blood loss was minimal, less than 0.1 cc. There were no complications, and the patient left the operating room in good condition. ANTOINE
== END 2017-03-16 10:58 | disposition home or self-care (01) ==
LOC: NSC 07:29
PROVIDERS: ATTEND Ophthalmology
DX: H26.9 Unspecified cataract (principal); E11.9 Type 2 diabetes mellitus without complications; Z79.84 Long term (current) use of oral hypoglycemic drugs
CPT/HCPCS: 66984; 82948; A9270; C1780; J0171; J2250; J3010